=== PATIENT | female | born 1945 | race African-American/Black ===

== ENCOUNTER 2016-12-11 05:19 | Day surgery (SDC) | payer MEDICARE, MEDICAID ==
[~2016-12-11] VITALS: Ht 160 cm; Wt 55.3 kg
[2016-12-11] MEDS ORDERED: LACTATED RINGERS 1,000 ML IV SCH (06:40)
[2016-12-11] MEDS ORDERED: SIME125C PO (06:41)
[2016-12-11] MEDS ORDERED: CARB300C6 PO (06:41)
[2016-12-11] MEDS ORDERED: ACET167L14 PO (06:41)
[2016-12-11] MEDS ORDERED: MORPHINE SULFATE/PF 1MG/ML 10ML AMP ONE (07:24)
[2016-12-11] MEDS ORDERED: EPINEPHRINE 1:1000 1 MG/ML AMP ONE (07:25)
[2016-12-11] MEDS ORDERED: BUPIVACAINE/EPINEPHRINE/PF 0.25%/0.0005 30ML ONE (07:25)
[2016-12-11] MEDS ORDERED: PROPOFOL 200MG/20ML VIAL IV ONE ×2 (07:48→08:16)
[2016-12-11] MEDS ORDERED: METOCLOPRAMIDE HCL 10MG/2ML VIAL ONE (07:48)
[2016-12-11] MEDS ORDERED: LIDOCAINE HCL 1% 20ML VIAL (Pyxis) INJ ONE (07:48)
[2016-12-11] MEDS ORDERED: ONDANSETRON HCL 4MG/2ML VIAL ONE (07:48)
[2016-12-11] MEDS ORDERED: FENTANYL CITRATE/PF 50MCG/ML 2ML VIAL ONE (07:50)
[2016-12-11] MEDS ORDERED: SUCCINYLCHOLINE CHLORIDE 200MG/10ML VIAL IV ONE (08:16)
[2016-12-11] MEDS ORDERED: CEFAZOLIN SODIUM 1000MG/VIAL ONE (08:16)
[2016-12-11] MEDS ORDERED: HYDROMORPHONE HCL/PF 2MG/ML (OR) ONE (08:25)
[2016-12-11] MEDS ORDERED: EPHEDRINE SULFATE 50MG/ML VIAL ONE (08:39)
[2016-12-11] MEDS ORDERED: KETOROLAC 30MG/ML VIAL ONE (09:08)
[2016-12-11] MEDS ORDERED: HYDROMORPHONE HCL/PF 2MG/ML CPJ IV PRN (09:15)
[2016-12-11] MEDS ORDERED: MEPERIDINE HCL/PF 25MG/ML CPJ IV PRN (09:15)
[2016-12-11] MEDS ORDERED: LABETALOL HCL 20MG/4ML CARPUJECT IV PRN (09:15)
[2016-12-11] MEDS ORDERED: ONDANSETRON HCL 4MG/2ML VIAL IV PRN ×2 (09:15→16:00)
[2016-12-11] MEDS ORDERED: HYDROCODONE/ACETAMINOPHEN 5/325MG TABLET PO PRN (16:00)
== END 2016-12-11 13:00 | disposition home or self-care (01) ==
LOC: OR 05:19
PROVIDERS: ATTEND Orthopaedic Surgery
DX: M75.102 Unspecified rotator cuff tear or rupture of left shoulder, not specified as traumatic (principal); M25.812 Other specified joint disorders, left shoulder; M75.52 Bursitis of left shoulder; M65.812 Other synovitis and tenosynovitis, left shoulder; G40.909 Epilepsy, unspecified, not intractable, without status epilepticus; G43.909 Migraine, unspecified, not intractable, without status migrainosus; Z90.710 Acquired absence of both cervix and uterus; Z90.49 Acquired absence of other specified parts of digestive tract
CPT/HCPCS: 29823; 29824; 29826; 88304; 88311; J0171; J0330; J0690; J1170; J1885; J2405; J2765; J3010; J3490; J7120; A4565; J2274; J2704